=== PATIENT | female | born 1965 | race Caucasian/White ===

== ENCOUNTER 2018-02-05 05:53 | Day surgery (SDC) | payer OTHER ==
[2018-02-05] MEDS ORDERED: DIPRIVAN 200 MG/20 ML IV ONE (05:54)
[2018-02-05] MEDS ORDERED: Ketamine HCl 50 MG/ML IV ONE (05:54)
[2018-02-05] MEDS ORDERED: Lactated Ringers 1,000 ML IV SCH (06:30)
[2018-02-05 08:48] VITALS: PULSE 56
[2018-02-05 08:50] VITALS: BP 132/83; O2SAT 100
--- NOTE | 2018-02-05 12:43 | OP ---
SURGERY DATE/TIME: 02/05/2018 0725 PREOPERATIVE DIAGNOSIS: Screening exam. POSTOPERATIVE DIAGNOSIS: Sigmoid diverticulosis otherwise normal colon. PROCEDURE: Colonoscopy. SURGEON: Dr. Arevalo. ANESTHESIA: MAC. Medications given by anesthesia department. HISTORY: The patient is a 52 year-old white female presenting now for screening colonoscopy. The patient was appraised of the risks of the procedure including the risk of perforation, phlebitis, untoward reaction to medication, bleeding and missed lesions. The patient verbalized her understanding and desired to have the procedure performed. DESCRIPTION OF PROCEDURE: The patient was given the medications by the anesthesia department. She had continuous pulse oximetry, ECG monitoring, intermittent blood pressure monitoring and tidal CO2 monitoring during the examination. She was placed in the left lateral decubitus position. A digital rectal examination was performed and revealed normal anal sphincter tone and no masses. The flexible Olympus pediatric colonoscope was used to intubate the rectum. A view of the colon was developed sequentially to the cecum. Upon insertion and withdrawal, including a retroflex view in the rectum was noted a few sigmoid diverticula otherwise no mucosal lesions were encountered. The scope was removed from the patient who tolerated the procedure well and was sent back to OP recovery in good condition. The prep was noted to be good.
== END 2018-02-05 08:55 | disposition home or self-care (01) ==
LOC: SDC 05:53
PROVIDERS: ATTEND Family Medicine
DX: Z12.11 Encounter for screening for malignant neoplasm of colon (principal); K57.30 Diverticulosis of large intestine without perforation or abscess without bleeding
CPT/HCPCS: J2704

== ENCOUNTER 2018-07-15 16:43 | Inpatient (IN) | payer OTHER ==
[2018-07-15] MEDS ORDERED: TYLENOL 325 MG PO STA (17:09)
[2018-07-15] MEDS ORDERED: LEVOFLOXACIN 750MG/150ML D5W 750 MG/150 ML BAG IV STA (17:09)
[2018-07-15] MEDS ORDERED: Sodium Chloride 0.9% 1000 ML 1,000 ML ONE ×2 (17:13→18:39)
[2018-07-15] MEDS ORDERED: TYLENOL 325 MG ONE (17:13)
[2018-07-15] MEDS ORDERED: LEVOFLOXACIN 750MG/150ML D5W 750 MG/150 ML BAG IV ONE (17:13)
[2018-07-15] MEDS: Sodium Chloride 0.9% 1000 ML 1,000 ML IV SCH ×3 (17:15→21:23)
[2018-07-15] MEDS ORDERED: SUBLIMAZE 100 MCG/2 ML IV ONE (17:16)
[2018-07-15] MEDS ORDERED: Zofran 4 MG/2 ML VIAL IV ONE (17:16)
[2018-07-15 17:18] LABS: BASOPHIL % 0.2 % (0.0-0.4); Basophil (Absolute #) 0.02 (0-0.4); Eosinophil (Absolute #) 0 (0-0.5); Granulocyte Absolute (ANC) 9.09 (1.4-6.9); Granulocytes % 78.9 % (36.0-66.0); Hematocrit 44.5 % (35-47); Hemoglobin 14.5 gm/dl (12.0-16.0); Lymphocyte (Absolute #) 1.36 (1.0-4.6); Lymphocytes % 11.8 % (24.0-44.0); Mean Cell Volume 85.1 fl (78-100); Mean Corpuscular Hemoglobin 27.7 pg (26-32); Mean Corpuscular Hgb Concent. 32.6 g/dl (32-36); Mean Platelet Volume 10.8 fl (6-9.5); Monocyte (Absolute #) 1.05 (0.0-1.3); Monocytes % 9.1 % (0.0-12.0); Platelet Count 269 K/mm3 (150-450); Red Blood Count 5.23 M/mm3 (4.1-5.4); Red Cell Distribution Width 13.4 % (11.5-14.0); White Blood Count 11.5 K/mm3 (4.0-10.5)
--- NOTE | 2018-07-15 17:18 | ERPHSYRPT ---
- History of Present Illness Time Seen by Provider: 07/15/18 17:00 Historian: patient Exam Limitations: clinical condition Patient Subjective Stated Complaint: PT HERE FOR LOOSE STOOLS,FEVER, ABD PAIN SINCE MONDAY, FINISHED ANTIBOTICS MONDAY FOR C DIFF, ALSO CO NAUSEA ,STATES HAD 8 STOOLS TODAY Triage Nursing Assessment: PT ALERT, RESP EASY, SKIN W/D/P. ABD SOFT,TENDER TO TOUCH, BS HEARD Physician History: PATIENT TREATED FOR CLOSTRIDIUM DIFFICLE TREATED FOR 10 DAYS SINCE Jun FOR SYMPTOMS OF GENERALIZED ABDOMINAL PAIN AND WATERY DIARRHEA, NOW COMPLAINS OF INCREASING ABDOMINAL PAIN, LOW GRADE FEVER AND WATERY DIARRHEA, OVER THE PAST 2-3 DAYS. Timing/Duration: day(s) Activities at Onset: none Quality: sharpness, stabbing Abdominal Pain Onset Location: generalized abdomen Severity of Pain-Max: severe Severity of Pain-Current: severe Modifying Factors: Improves With: nothing Associated Symptoms: fever/chills, loss of appetite, nausea Previous symptoms: same symptoms as today Allergies/Adverse Reactions: hydromorphone [From Dilaudid] Allergy (Severe, Verified 07/15/18 16:56) Nausea and Vomiting Iodinated Contrast- Oral and IV Dye Allergy (Severe, Verified 07/15/18 16:56) Hives Home Medications: Citalopram Hydrobromide 20 mg* [ceLEXa 20 MG] 20 mg PO DAILY 02/02/18 [ History] Omeprazole Magnesium [Prilosec Otc] 20 mg PO DAILY 02/02/18 [History] L.acidoph,Paracasei, B.lactis [Probiotic] 1 ea DAILY 07/15/18 [History] Hx Tetanus, Diphtheria Vaccination/Date Given: No Hx Influenza Vaccination/Date Given: Yes Hx Pneumococcal Vaccination/Date Given: No Immunizations Up to Date: Yes - Review of Systems Constitutional: Fever, Chills Eyes: No Symptoms Ears, Nose, & Throat: No Symptoms Respiratory: No Symptoms Cardiac: No Symptoms Abdominal/Gastrointestinal: Abdominal Pain, Nausea, Diarrhea Genitourinary Symptoms: No Symptoms Skin: No Symptoms Neurological: No Symptoms Psychological: No Symptoms Endocrine: No Symptoms Immunological/Allergic: No Symptoms - Past Medical History Pertinent Past Medical History: Yes Neurological History: No Pertinent History ENT History: No Pertinent History Cardiac History: No Pertinent History Respiratory History: No Pertinent History Endocrine Medical History: No Pertinent History Musculoskeletal History: No Pertinent History GI Medical History: No Pertinent History History: No Pertinent History Psycho-Social History: Anxiety, Depression Female Reproductive Disorders: No Pertinent History Other Medical History: C DIFF 2018 - Past Surgical History Past Surgical History: Yes Neuro Surgical History: No Pertinent History Cardiac: No Pertinent History Respiratory: No Pertinent History Gastrointestinal: Cholecystectomy Genitourinary: No Pertinent History Musculoskeletal: No Pertinent History Female Surgical History: Hysterectomy - Social History Smoking Status: Never smoker Exposure to second hand smoke: No Drug Use: none Patient Lives Alone: No - Female History Hx Last Menstrual Period: POST Hx Now: No - Nursing Vital Signs Nursing Vital Signs: Initial Vital Signs Temperature 100.0 F 07/15/18 16:51 Pulse Rate 94 H 07/15/18 16:51 Respiratory Rate 16 07/15/18 16:51 Blood Pressure 151/96 07/15/18 16:51 O2 Sat by Pulse Oximetry 98 07/15/18 16:51 Pain Scale Pain Intensity 4 - Physical Exam General Appearance: no apparent distress, alert Eye Exam: PERRL/EOMI, eyes nml inspection Ears, Nose, Throat Exam: normal ENT inspection, pharynx normal, moist mucous membranes Neck Exam: normal inspection, non-tender, supple, full range of motion Respiratory Exam: normal breath sounds, lungs clear, No respiratory distress Cardiovascular Exam: regular rate/rhythm, normal heart sounds Gastrointestinal/Abdomen Exam: soft, normal bowel sounds, tenderness ( TENDERNESS BILAT LOWER QUAD WITH PERIUMBILICAL TENDERNESS), No mass Back Exam: normal inspection, normal range of motion, No CVA tenderness, No vertebral tenderness Extremity Exam: normal inspection, normal range of motion, pelvis stable Neurologic Exam: alert, oriented x 3, cooperative, normal mood/affect, nml cerebellar function, sensation nml, No motor deficits Skin Exam: normal color, warm, dry SpO2 Interpretation: normal SpO2: 98 Oxygen Delivery: Room Air - CT Exams Abdomen/Pelvis CT Interpretation: Tele-radiologist Report (MINIMAL WALL THICKENING OF THE DISTAL SIGMOID COLON AND RECTUM) Ordered Tests: Active Orders 24 hr Category Date Time Status Up With Assistance ROUTINE Activity 07/15/18 19:03 Ordered Call Admit Doctor for Orders ON ADMISSION Care 07/15/18 19:03 Ordered Code Status Order ROUTINE Care 07/15/18 19:03 Ordered IV Care Q6H Care 07/15/18 19:03 Ordered IV Insertion STAT Care 07/15/18 17:[address] in Observation ROUTINE Care 07/15/18 19:03 Ordered Vital Signs Q4H Care 07/15/18 19:03 Ordered NPO except Meds Diet 07/15/18 19:04 Ordered ABDOMEN AND PELVIS W/0 CONTRAS [CT] Stat Exams 07/15/18 17:49 Taken BLOOD CULTURE Stat Lab 07/15/18 17:00 Ordered CBC W DIFF Stat Lab 07/15/18 17:00 Completed CMP Stat Lab 07/15/18 17:00 Completed Lactic Acid Stat Lab 07/15/18 17:09 Completed Occult Blood,Stool Other Stat Lab 07/15/18 18:58 Ordered PROTIME WITH INR Stat Lab 07/15/18 17:00 Completed VENOUS BLOOD GAS Stat Lab 07/15/18 17:09 Completed Transfer Order Routine Transfer 07/15/18 Ordered Medication Summary Generic Name Dose Route Start Last Admin Trade Name Freq PRN Reason Stop Dose Admin Sodium Chloride 1,000 mls @ 999 mls/hr 07/15/18 17:15 07/15/18 18:42 Sodium Chloride 0.9% 1000 Ml IV 07/15/18 20:15 999 mls/hr .Q1H1M IMAN Administration Discontinued Medications Generic Name Dose Route Start Last Admin Trade Name Freq PRN Reason Stop Dose Admin Acetaminophen 650 mg 07/15/18 17:09 07/15/18 17:15 Tylenol 325 Mg PO 07/15/18 17:10 650 mg STAT STA Administration Acetaminophen Confirm 07/15/18 17:13 Tylenol 325 Mg Administered 07/15/18 17:14 Dose 650 mg .ROUTE .STK-MED ONE Fentanyl Citrate 100 mcg 07/15/18 17:16 07/15/18 17:25 Sublimaze 100 Mcg/2 Ml IV 07/15/18 17:17 100 mcg STAT ONE Administration Fentanyl Citrate Confirm 07/15/18 17:23 Sublimaze 100 Mcg/2 Ml Administered 07/15/18 17:24 Dose 100 mcg .ROUTE .STK-MED ONE Levofloxacin/Dextrose 750 mg in 150 mls @ 100 mls/hr 07/15/18 17:09 07/15/18 17:15 Levofloxacin 750mg/150ml D5w IV 11/18/18 18:38 125 ml/hr STAT STA 125 mls/hr Administration Levofloxacin/Dextrose Confirm 07/15/18 17:13 Levofloxacin 750mg/150ml D5w Administered 07/15/18 17:14 Dose 750 mg in 150 mls @ ud IV .STK-MED ONE Metronidazole 500 mg in 100 mls @ 200 mls/hr 07/15/18 18:33 Flagyl 500 Mg Ivpb IV 07/15/18 19:02 STAT STA Ondansetron HCl 4 mg 07/15/18 17:16 07/15/18 17:26 Zofran 4 Mg/2 Ml Vial IV 07/15/18 17:17 4 mg STAT ONE Administration Ondansetron HCl Confirm 07/15/18 17:23 Zofran 4 Mg/2 Ml Vial Administered 07/15/18 17:24 Dose 4 mg .ROUTE .STK-MED ONE Vancomycin HCl 250 mg 07/15/18 18:51 Vancomycin Hcl Capsule PO 07/15/18 18:52 STAT ONE Lab/Rad Data: Laboratory Result Diagrams 07/15/18 17:00 07/15/18 17:00 Laboratory Results 07/15/18 07/15/18 07/15/18 Range/Units 17:09 17:09 17:00 WBC (4.0-10.5) K/mm3 RBC (4.1-5.4) M/mm3 Hgb (12.0-16.0) gm/dl Hct (35-47) % MCV (78-100) fl MCH (26-32) pg MCHC (32-36) g/dl RDW (11.5-14.0) % Plt Count (150-450) K/mm3 MPV (6-9.5) fl Gran % (36.0-66.0) % Eos # (Auto) (0-0.5) Absolute Lymphs (auto) (1.0-4.6) Absolute Monos (auto) (0.0-1.3) Lymphocytes % (24.0-44.0) % Monocytes % (0.0-12.0) % Eosinophils % (0.00-5.0) % Basophils % (0.0-0.4) % Absolute Granulocytes (1.4-6.9) Basophils # (0-0.4) PT 12.8 H (9.95-12.35) SECONDS INR 1.10 (0.8-3.0) pO2/FiO2 Ratio 21.0 % VBG pH 7.49 H (7.32-7.42) VBG pCO2 at Pat Temp 36 L (42-55) mm/Hg VBG pO2 at Pat Temp 33 (25-40) mm/Hg VBG HCO3 27.4 (22-28) meq/L VBG O2 Sat (Ellie) 70.8 L (95-100) VBG Base Excess 4.1 H (-2.0-2.0) VBG Hemoglobin 15.0 VBG Carboxyhemoglobin 2.9 (0.0-6.9) % T HGB POC Potassium 3.6 (3.5-5.1) Sodium (137-145) mmol/L Potassium (3.5-5.1) mmol/L Chloride (98-107) mmol/L Carbon Dioxide (22-30) mmol/L Anion Gap (5-15) MEQ/L BUN (7-17) mg/dL Creatinine (0.52-1.04) mg/dL Estimated GFR ML/MIN Glucose (74-106) mg/dL Lactic Acid 1.5 (0.4-2.0) Calcium (8.4-10.2) mg/dL Total Bilirubin (0.2-1.3) mg/dL AST (14-36) U/L ALT (0-35) U/L Alkaline Phosphatase (38-126) U/L Serum Total Protein (6.3-8.2) g/dL Albumin (3.5-5.0) g/dL 07/15/18 07/15/18 Range/Units 17:00 17:00 WBC 11.5 H (4.0-10.5) K/mm3 RBC 5.23 (4.1-5.4) M/mm3 Hgb 14.5 (12.0-16.0) gm/dl Hct 44.5 (35-47) % MCV 85.1 (78-100) fl MCH 27.7 (26-32) pg MCHC 32.6 (32-36) g/dl RDW 13.4 (11.5-14.0) % Plt Count 269 (150-450) K/mm3 MPV 10.8 H (6-9.5) fl Gran % 78.9 H (36.0-66.0) % Eos # (Auto) 0 (0-0.5) Absolute Lymphs (auto) 1.36 (1.0-4.6) Absolute Monos (auto) 1.05 (0.0-1.3) Lymphocytes % 11.8 L (24.0-44.0) % Monocytes % 9.1 (0.0-12.0) % Eosinophils % 0.0 (0.00-5.0) % Basophils % 0.2 (0.0-0.4) % Absolute Granulocytes 9.09 H (1.4-6.9) Basophils # 0.02 (0-0.4) PT (9.95-12.35) SECONDS INR (0.8-3.0) pO2/FiO2 Ratio % VBG pH (7.32-7.42) VBG pCO2 at Pat Temp (42-55) mm/Hg VBG pO2 at Pat Temp (25-40) mm/Hg VBG HCO3 (22-28) meq/L VBG O2 Sat (Ellie) (95-100) VBG Base Excess (-2.0-2.0) VBG Hemoglobin VBG Carboxyhemoglobin (0.0-6.9) % T HGB POC Potassium (3.5-5.1) Sodium 141 (137-145) mmol/L Potassium 3.7 (3.5-5.1) mmol/L Chloride 103 (98-107) mmol/L Carbon Dioxide 26 (22-30) mmol/L Anion Gap 16.4 H (5-15) MEQ/L BUN 10 (7-17) mg/dL Creatinine 0.63 (0.52-1.04) mg/dL Estimated GFR > 60.0 ML/MIN Glucose 108 H (74-106) mg/dL Lactic Acid (0.4-2.0) Calcium 9.5 (8.4-10.2) mg/dL Total Bilirubin 0.50 (0.2-1.3) mg/dL AST 28 (14-36) U/L ALT 34 (0-35) U/L Alkaline Phosphatase 70 (38-126) U/L Serum Total Protein 7.8 (6.3-8.2) g/dL Albumin 4.6 (3.5-5.0) g/dL - Progress Progress Note: 07/15/18 17:49 PLACED ONTO SEPSIS PROTOCOL UPON ADMISSION 100KG X 30ML BUT REMOVED AFTER LACTIC ACID-1.6 07/15/18 17:51, NORMAL SALINE LITER BOLUS OVER 1 HOUR, ZOFRAN 4MG, FENTANYL 0.1MG IV, GIVEN VANCOMYCIN 250MG ORALLY 07/15/18 18:48 Discussed with DrTaqueria: Other (DISCUSSED WITH DR CURTIS AT 1845 FOR OBSERVATION) - Departure Time of Disposition: 18:55 Departure Disposition: Observation Clinical Impression: ACUTE SIGMOID PROTOCOLITIS Condition: Stable Critical Care Time: No Referrals: BAIRON ROMO [Primary Care Provider] -
[2018-07-15] MEDS ORDERED: Zofran 4 MG/2 ML VIAL ONE (17:23)
[2018-07-15] MEDS ORDERED: SUBLIMAZE 100 MCG/2 ML ONE (17:23)
[2018-07-15 17:25] LABS: VBG BASE EXCESS 4.1 (-2.0-2.0); VBG CARBOXYHEMOGLOBIN 2.9 % T HGB (0.0-6.9); VBG HCO3- 27.4 meq/L (22-28); VBG O2 SATURATION 70.8 (95-100); VBG POTASSIUM 3.6 (3.5-5.1); VBG pH 7.49 (7.32-7.42)
[2018-07-15 17:38] LABS: INR 1.1 (0.8-3.0)
[2018-07-15 17:42] LABS: ALBUMIN 4.6 g/dL (3.5-5.0); ALKALINE PHOSPHATASE 70 U/L (38-126); ANION GAP 16.4 MEQ/L (5-15); BLOOD UREA NITROGEN 10 mg/dL (7-17); CHLORIDE 103 mmol/L (98-107); Calcium 9.5 mg/dL (8.4-10.2); Carbon Dioxide 26 mmol/L (22-30); Creatinine 1 0.63 mg/dL (0.52-1.04); Glucose 108 mg/dL (74-106); Potassium 3.7 mmol/L (3.5-5.1); SGOT/AST 28 U/L (14-36); SGPT/ALT 34 U/L (0-35); SODIUM 141 mmol/L (137-145); Total Protein 7.8 g/dL (6.3-8.2)
[2018-07-15] MEDS ORDERED: FLAGYL 500 MG IVPB 500 MG/100 ML BAG IV STA (18:33)
[2018-07-15] MEDS ORDERED: VANCOMYCIN HCL CAPSULE PO ONE (18:51)
[2018-07-15 19:59] LABS: 027 TOX PROD PRESUMPTIVE NEGATIVE (NEGATIVE); TOXIGENIC C. DIFF ORG POSITIVE (NEGATIVE)
--- NOTE | 2018-07-15 21:12 | XRAY ---
Indication: Pelvic pain and diarrhea. Multiple contiguous axial images obtained through the abdomen and pelvis without contrast as ordered. Comparison: None. Lung bases are clear. Heart is not enlarged. Small hiatal hernia. Noncontrasted stomach and bowel loops appear nonobstructed. Normal appendix. No free fluid/air. Scattered hepatic/splenic calcified granulomas. Previous cholecystectomy and hysterectomy. Remaining liver, pancreas, spleen, adrenal glands, kidneys, ureters, bladder, uterus, and aorta appear unremarkable for noncontrast exam. Osseous structures intact. No ventral or inguinal hernias. Impression: 1. Small hiatal hernia and evidence for old granulomatous disease. 2. Remaining CT abdomen/pelvis without contrast exam is negative. Comment: Preliminary interpretation was made by [facility]. No critical discrepancy. CTDI 21.88
[2018-07-15] MEDS: TYLENOL 325 MG PO PRN (21:21)
[2018-07-15] MEDS: VANCOMYCIN HCL CAPSULE PO SCH (22:10)
[2018-07-15] MEDS: Pepcid 20 MG VIAL IV SCH (23:10)
[2018-07-16] MEDS: FLAGYL 500 MG IVPB 500 MG/100 ML BAG IV SCH ×4 (01:23→17:03)
[2018-07-16] MEDS: MORPHINE SULFATE 4 MG INJ IV PRN ×2 (01:24→09:05)
[2018-07-16] MEDS: Sodium Chloride 0.9% 1000 ML 1,000 ML IV SCH ×2 (07:37→19:55)
[2018-07-16] MEDS: ceLEXa 20 MG PO SCH (10:51)
[2018-07-16] MEDS: VANCOMYCIN HCL CAPSULE PO SCH ×4 (10:51→21:53)
[2018-07-16] MEDS: Pepcid 20 MG VIAL IV SCH ×2 (10:51→21:53)
[2018-07-16] MEDS: Zofran 4 MG/2 ML VIAL IV PRN (12:46)
[2018-07-16] MEDS ORDERED: MORPHINE SULFATE 2 MG INJ IV PRN (15:44)
--- NOTE | 2018-07-16 15:50 | HP ---
HISTORY OF PRESENT ILLNESS: Rachelle Lowry is a 53 year old woman with past medical history of anxiety, depression and gastroesophageal reflux disease. She was recently treated for Clostridium difficile colitis for ten days starting 06/30/2018 for symptoms of abdominal pain and watery diarrhea. She presented to the emergency room yesterday evening. As per patient she completed her treatment as directed. She presented to the emergency room yesterday with symptoms of generalized abdominal pain, low grade fever, watery diarrhea for two to three days. Also, she had reported nausea and bright red blood in stools. Upon initial evaluation in the emergency room she had low grade fever. Upon initial evaluation in the emergency room she was noted to have blood pressure 151/96, heart rate 94, respiratory rate 16 and temperature 100F. Oxygen saturation 98%. CT scan done in the emergency room showed minimal wall thickening of the sigmoid colon and rectum. She was treated with Tylenol 650 mg p.o. x1, Levaquin 750 mg IV x1, Flagyl 500 mg IV x1, Zofran 4 mg IV x1, Vancomycin 250 mg p.o. x1. Subsequently she was admitted to medical floor for monitoring and management. Since admission she was continued on antibiotics, IV fluids and analgesics. At the time of this evaluation she was alert, awake, comfortable. States that abdominal pain has improved some. Complains of occasional nausea. States diarrhea has improved. PAST MEDICAL HISTORY: As noted above. PAST SURGICAL HISTORY: Cholecystectomy. Hysterectomy. The patient's last colonoscopy was on 02/14/2018. ALLERGIES: HYDROMORPHONE, IODINATED CONTRAST. MEDICATIONS: Current medications were reviewed. SOCIAL HISTORY: The patient lives at home where she is a smoker. CRUSHER FEEDER HISTORY: The patient is post-menopausal. FAMILY HISTORY: Noncontributory. REVIEW OF SYSTEMS: Denies headache or dizziness. History of low grade fever. Denies chest pain, shortness of breath or cough. General abdominal pain, nausea. No vomiting. History of low grade fever. Complains of diarrhea, blood in stool. Complains of crampy abdominal pain. Complains of nausea. No vomiting. Denies urinary complaints. PHYSICAL EXAMINATION: A middle aged obese woman lying comfortably in bed, not in acute distress. VITAL SIGNS: Blood pressure 131/70, heart rate 81, respiratory rate 18, temperature 98.8F. Oxygen saturation 95% on room air. HEENT: No pallor or icterus is noted. NECK: No JVD is present. CVS: S1, S2 present. RESPIRATORY: Breath sounds are bilaterally and clear to auscultation. ABDOMEN: Obese, soft, mild generalized tenderness. No guarding present. Bowel sounds present. NEURO: She is alert, oriented x3. EXTREMITIES: No edema on bilateral lower extremities. LABORATORY DATA AND TESTS: Labs from 07/15/2018 showed CBC with white blood cell count 11.5, hemoglobin 14.5, hematocrit 44.5 otherwise unremarkable. International normalized ratio was 1.10. Venous blood gas showed pH of 7.49. CMP essentially unremarkable. Stool Clostridium difficile toxin was positive. Stool occult blood was positive. Lactic acid 1.5. Clostridium difficile 027, NAP1-B1 presumptive negative. Blood cultures are pending. CT scan of abdomen and pelvis showed small hiatal hernia, evidence of old granulomatous disease otherwise negative. ASSESSMENT: A 53 year old woman with impression: 1) Clostridium difficile colitis. 2) Dehydration. 3) Blood in stool. 4) Gastroesophageal reflux disease. 5) Anxiety/Depression. PLAN: The patient is admitted for further monitoring and management. Continue IV fluids, analgesics, continue broad spectrum IV antibiotics (Flagyl and Levaquin). Addition of proton pump inhibitors. Continue to follow CBC and electrolytes. Surgery consultation. Continue to follow hemodynamic status. The plan was discussed with the patient. She seems to be in understanding and agreement.
[2018-07-16] MEDS: PROTONIX 40 MG IV IV SCH (16:23)
[2018-07-16] MEDS: TYLENOL 325 MG PO PRN (17:01)
[2018-07-17] MEDS: Zofran 4 MG/2 ML VIAL IV PRN ×2 (00:37→08:26)
[2018-07-17] MEDS: FLAGYL 500 MG IVPB 500 MG/100 ML BAG IV SCH ×5 (00:37→23:12)
[2018-07-17 06:04] LABS: BASOPHIL % 0.2 % (0.0-0.4); Basophil (Absolute #) 0.01 (0-0.4); Eosinophil (Absolute #) 0 (0-0.5); Granulocyte Absolute (ANC) 3.68 (1.4-6.9); Granulocytes % 65.7 % (36.0-66.0); Hemoglobin 12.1 gm/dl (12.0-16.0); Lymphocyte (Absolute #) 1.22 (1.0-4.6); Lymphocytes % 21.8 % (24.0-44.0); Mean Cell Volume 85.8 fl (78-100); Mean Corpuscular Hemoglobin 28.1 pg (26-32); Mean Corpuscular Hgb Concent. 32.7 g/dl (32-36); Mean Platelet Volume 10.4 fl (6-9.5); Monocyte (Absolute #) 0.69 (0.0-1.3); Monocytes % 12.3 % (0.0-12.0); Platelet Count 199 K/mm3 (150-450); Red Blood Count 4.31 M/mm3 (4.1-5.4); White Blood Count 5.6 K/mm3 (4.0-10.5)
[2018-07-17 06:45] LABS: ALBUMIN 3.7 g/dL (3.5-5.0); ALKALINE PHOSPHATASE 56 U/L (38-126); BLOOD UREA NITROGEN 6 mg/dL (7-17); CHLORIDE 105 mmol/L (98-107); Calcium 8.4 mg/dL (8.4-10.2); Carbon Dioxide 22 mmol/L (22-30); Creatinine 1 0.55 mg/dL (0.52-1.04); Glucose 71 mg/dL (74-106); Potassium 3.5 mmol/L (3.5-5.1); SGOT/AST 23 U/L (14-36); SGPT/ALT 25 U/L (0-35); SODIUM 138 mmol/L (137-145); Total Protein 6.5 g/dL (6.3-8.2)
[2018-07-17] MEDS: Sodium Chloride 0.9% 1000 ML 1,000 ML IV SCH ×2 (08:14→22:56)
[2018-07-17] MEDS: TYLENOL 325 MG PO PRN (08:25)
--- NOTE | 2018-07-17 09:04 | CONS ---
CONSULT DATE: 07/16/2018 REASON FOR CONSULT: Diarrhea. HISTORY: This patient presents with recurrent Clostridium difficile infections. She was initially diagnosed with Clostridium difficile on 06/30/2018. She underwent three different antibiotic treatments for both tooth abscess and root canal and urinary tract infection. She had noticed severe diarrhea with some blood in her stool. She was placed on Flagyl and this cleared up. After she completed Flagyl she had return of her symptoms on Monday. Yesterday she had a fever of 101F, severe abdominal pain, multiple diarrheal with blood in it and returned to the hospital. She was placed on p.o. Vancomycin and IV Flagyl and today her symptoms are much better. She is not having as much pain. She is not having any fevers in the hospital just low grade. She had four bowel movements today but they were just a small amount of mucous and were not very significant with just a small amount of blood in them. Overall she feels much better today. She denies any chest pain, shortness of breath, dysuria. REVIEW OF SYSTEMS: Twelve systems reviewed and negative except for in the history of present illness. PAST MEDICAL HISTORY: Anxiety, depression, gastroesophageal reflux disease, Clostridium difficile colitis. PAST SURGICAL HISTORY: Cholecystectomy. Hysterectomy. Colonoscopy last performed December [address] Daron Arevalo. MEDICATIONS: Medications reviewed, see MAR. ALLERGIES: DILAUDID, IODINATED CONTRAST. SOCIAL HISTORY: Positive for tobacco. FAMILY HISTORY: Noncontributory. PHYSICAL EXAMINATION: GENERAL: No acute distress. HEENT: Sclera nonicteric. Extraocular movements intact. NECK: Supple. No JVD. CHEST: Nonlabored breathing. ABDOMEN: Soft, nondistended, mildly tender in the left lower quadrant. NEURO: Awake, alert and oriented. PSYCH: Appropriate mood and affect. LAB DATA AND TESTS: CT scan showed very mild sigmoid and rectal thickening consistent with proctosigmoiditis. Clostridium difficile polymerase chain reaction (PCR) is positive. White blood cell 11.5, hemoglobin 14.5, PLT 269,000. Creatinine 0.68, glucose 108. CT scan also showed small hiatal hernia. ASSESSMENT: Clostridium difficile colitis. PLAN: I would not recommend colonoscopy during active Clostridium difficile colitis. The patient is currently quite comfortable with not that much abdominal pain and a mildly elevated white blood cell count. She definitely appears nontoxic and there is no need for surgery for her Clostridium difficile colitis. I would recommend continued treatment with p.o. Vancomycin as she has failed Flagyl previously. If the patient's Clostridium difficile colitis does not resolve after this second course of antibiotic therapy would recommend evaluation for fecal transplant or continued antibiotic therapy with Pepcid. We do not do fecal transplants at this institution so she would need to be evaluated at another facility for this option. Please call if needed.
[2018-07-17] MEDS: VANCOMYCIN HCL CAPSULE PO SCH ×4 (10:22→21:25)
[2018-07-17] MEDS: ceLEXa 20 MG PO SCH (10:22)
[2018-07-17] MEDS: LEVOFLOXACIN 750MG/150ML D5W 750 MG/150 ML BAG IV SCH (10:22)
[2018-07-17] MEDS: Pepcid 20 MG VIAL IV SCH ×2 (10:23→21:25)
[2018-07-17] MEDS: PROTONIX 40 MG IV IV SCH (14:33)
[2018-07-18] MEDS: FLAGYL 500 MG IVPB 500 MG/100 ML BAG IV SCH ×2 (06:25→11:49)
[2018-07-18 08:48] LABS: BASOPHIL % 0.5 % (0.0-0.4); Basophil (Absolute #) 0.02 (0-0.4); Eosinophil (Absolute #) 0 (0-0.5); Granulocyte Absolute (ANC) 2.41 (1.4-6.9); Granulocytes % 61.2 % (36.0-66.0); Hematocrit 39.1 % (35-47); Hemoglobin 12.9 gm/dl (12.0-16.0); Lymphocyte (Absolute #) 1.02 (1.0-4.6); Lymphocytes % 25.9 % (24.0-44.0); Mean Cell Volume 84.8 fl (78-100); Mean Platelet Volume 10.2 fl (6-9.5); Monocyte (Absolute #) 0.49 (0.0-1.3); Monocytes % 12.4 % (0.0-12.0); Platelet Count 225 K/mm3 (150-450); Red Blood Count 4.61 M/mm3 (4.1-5.4); Red Cell Distribution Width 13.1 % (11.5-14.0); White Blood Count 3.9 K/mm3 (4.0-10.5)
[2018-07-18 09:00] LABS: ALBUMIN 4.1 g/dL (3.5-5.0); ALKALINE PHOSPHATASE 58 U/L (38-126); ANION GAP 12.9 MEQ/L (5-15); BLOOD UREA NITROGEN 5 mg/dL (7-17); CHLORIDE 107 mmol/L (98-107); Calcium 8.7 mg/dL (8.4-10.2); Carbon Dioxide 24 mmol/L (22-30); Creatinine 1 0.59 mg/dL (0.52-1.04); Glucose 138 mg/dL (74-106); Potassium 3.7 mmol/L (3.5-5.1); SGOT/AST 29 U/L (14-36); SGPT/ALT 26 U/L (0-35); SODIUM 140 mmol/L (137-145)
--- NOTE | 2018-07-18 09:31 | PROG NOTE ---
DATE: 07/17/2018 Chart reviewed and event noted. HISTORY: The patient is alert, awake and comfortable. States she had six to seven loose bowel movements however did not see any blood in stools. She states abdominal cramping has improved much better, has nearly resolved. Overall feels better. Denies any other new complaints. Appears comfortable. PHYSICAL EXAMINATION: VITAL SIGNS: Blood pressure 126/79, heart rate 66, respiratory rate 18, temperature 98.2F. Oxygen saturation 95%. HEENT: No pallor or icterus is noted. NECK: No JVD is present. CVS: S1, S2 present. RESPIRATORY: Breath sounds are bilaterally diminished and clear to auscultation. ABDOMEN: Soft, nontender. NEURO: She is alert, oriented x3. EXTREMITIES: No edema on bilateral lower extremities. LABORATORY DATA AND TESTS: Labs from today show unremarkable CBC, unremarkable CMP. Blood cultures have shown no growth. Medications were reviewed. ASSESSMENT: A 53 year-old with impression: 1) Clostridium difficile colitis. 2) Dehydration, clinically improved. 3) History of blood in stools (stable hemoglobin/hematocrit). 4) Gastroesophageal reflux disease. 5) Anxiety/depression. PLAN: Continue current management. Start diet advance as tolerated. Continue p.o. Vancomycin. Surgical consult noted. Will discontinue Flagyl at this time. Likely discharge tomorrow. The plan was discussed with the patient. She seems to be in understanding and agreement. The patient's nurse was not available at the time of evaluation.
[2018-07-18] MEDS: LEVOFLOXACIN 750MG/150ML D5W 750 MG/150 ML BAG IV SCH ×2 (09:46→09:52)
[2018-07-18] MEDS: Pepcid 20 MG VIAL IV SCH (09:46)
[2018-07-18] MEDS: ceLEXa 20 MG PO SCH (09:46)
[2018-07-18] MEDS: MARY'S MOUTHWASH PO SCH ×2 (09:46→14:20)
[2018-07-18] MEDS: VANCOMYCIN HCL CAPSULE PO SCH ×2 (09:46→14:19)
[2018-07-18 14:21] VITALS: BP 123/73; PULSE 79; O2SAT 94
--- NOTE | 2018-07-18 16:34 | DS ---
DISCHARGE DIAGNOSIS: 1. CLOSTRIDIUM DIFFICILE COLITIS. 2. DEHYDRATION - CLINICALLY RESOLVED. 3. BLOOD IN STOOL (STABLE HGB/HCT). 4. GERD. 5. ANXIETY/DEPRESSION. 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 Duane Luevano. HOSPITAL COURSE: is a 53 y/o woman with past medical history of anxiety, depression, and GERD. She was recently treated for C. Diff colitis for 10 days started 06/30/18 and had completed treatment with Flagyl. Subsequently, she presented to ER on 07/15/18 with symptoms of abdominal pain, low grade fever, and watery diarrhea with blood in stools. Work-up done in ER showed CBC with WBC of 11.5. CMP was unremarkable. C. Diff toxin was positive. Stool occult blood was positive (She had also reported some blood in stools upon presentation). Lactic acid on presentation was 1.5. Preliminary results of CT scan of abdomen and pelvis had shown minimal wall thickening of sigmoid colon and rectum. Eventually, CT was read as small hiatal hernia, evidence of old granulomatous disease, otherwise negative. C. Diff 027 NAP1-B1 presumptive negative. She was placed on treatment with IV fluids, antiemetics, and analgesics. Also, she was started on broad spectrum IV antibiotics including IV Levaquin. She was placed on PO Vancomycin. Surgical consultation as obtained. Blood cultures during her stay had remained negative. Follow-up labs during her stay showed normal WBC, minimal drop but eventually stable Hgb/Hct. During her further course, her blood in stool had clinically resolved. Also, PPI were added to her treatment with significant improvement in her symptoms of nausea/abdominal cramps. Eventually, the symptoms of abdominal cramps had resolved. She was placed on clear liquid diet that she tolerated well and her diet was advanced as tolerated. During her further course, she did have some diarrhea, but she otherwise remained hemodynamically stable. She was evaluated by surgical orderly on case and was advised to continue antibiotics. There was felt to be no need for any additional surgical intervention at this time. The rest of her course was essentially, more or less, unremarkable. She improved clinically, remained hemodynamically stable. At the time of this evaluation, she is alert, awake, and comfortable. States her abdominal pain/cramps and nausea had resolved. Earlier today she was placed on regular diet that she tolerated well. She still has occasional diarrhea. However, overall, feels much better. She has ambulated with comfort. She is feeling well and is requesting to be discharged home today. Appears comfortable. Denies any other complaints. VITALS: BP 123/73, heart rate 79, respiratory rate 18, temperature 98.2, O2 saturation 95% on room air. HEENT: No pallor or icterus noted. NECK: No JVD present. CVS: S1 and S2 present. RESPIRATORY: Breath sounds bilaterally diminished and clear to auscultation. ABDOMEN: Soft, nontender. NEURO: She was alert and oriented X 3. EXTREMITIES: No edema on bilateral lower extremities. LABORATORY DATA: Labs from today show CBC with WBC of 3.9, Hgb 12.9, Hct 39, platelets 225. Today's CMP is unremarkable except glucose 138. Medications were reviewed. Assessment as outlined in Discharge Diagnosis. PLAN: 53 y/o woman with history of GERD, anxiety, depression, and recent treatment for C. Diff colitis was admitted with symptoms of abdominal cramps, diarrhea, and fever and was diagnosed to have recurrence of C. Diff. She underwent work-up and treatment as noted. She has improved clinically. Remains hemodynamically stable. She is able to tolerate diet. She was treated conservatively per surgery recommendations. She is otherwise feeling well and is wishing to go home. She is being discharged after discussion with surgical orderly on case. She is being discharged home in stable condition. Please refer to discharge medication list from 07/18/18 for details of medications on discharge. The patient was advised to start her discharge medications as directed. She was advised to continue her antibiotics for an additional 6 days. Also, patient requested prescription for PPI as that had helped her abdominal symptoms well. She was given prescription for that. She was advised to drink ample PO fluids. She was advised to obtain CMP/CBC in 1 week and follow-up with family care physician of her choice in 1 week. Compliance with diet, medications, follow-up appoints was stressed. She was also advised to follow-up with surgical orderly in the next couple of weeks. She was advised to return to the Emergency Room [facility] if any new signs and symptoms or reappearance of previous signs and symptoms are noted. Patient's clinical condition, work-up results, and plan of management including plan after discharged were discussed with her. She seems to be in understanding and agreement. Please refer to patient's chart, diagnostic work-up, and notes for details. Plan was discussed with egg caser. ADDENDUM (07/19/2018): After I had left from patient's room, I was informed by the patient's nurse that the patient had reportedly developed some itching and redness to Levaquin when she was receiving that earlier yesterday morning. I went back to the patient's room and asked the patient about the same. The patient stated she had minimal redness at the site where she had received Levaquin. However those symptoms have resolved after a while. Upon examination the patient had minimal erythema at the site and as per patient that was resolving as well. Given questionable allergy to Levaquin the patient's Levaquin prescription was cancelled. The patient's pharmacy was notified of the same by patient's nurse to cancel Levaquin prescription. Upon discharge the patient was given a prescription for Keflex 500 mg in addition to her Vancomycin. The patient was advised to start Keflex in addition to p.o. Vancomycin as directed. The patient was advised to continue to monitor additional signs, symptoms of allergy including but not limited to rash, shortness of breath, and return to our emergency room immediately when they are to appear. The plan was discussed with the patient who seemed to be in understanding and agreement. Discussed with patient's nurse, Neha.
[2018-07-20 17:06] LABS: Source: Feces
== END 2018-07-18 16:50 | disposition home or self-care (01) | DRG 372 ==
LOC: ED 16:43 → MED SURG 19:28 → OBSVTOIN 19:28
PROVIDERS: ADMIT Internal Medicine; ATTEND General Practice
DX: A04.72 Enterocolitis due to Clostridium difficile, not specified as recurrent (principal); K92.1 Melena; E86.0 Dehydration; K21.9 Gastro-esophageal reflux disease without esophagitis; F41.9 Anxiety disorder, unspecified; F32.9 Major depressive disorder, single episode, unspecified; Z79.899 Other long term (current) drug therapy; Z72.0 Tobacco use
CPT/HCPCS: 36000; 36415; 74176; 80053; 82272; 82805; 83605; 85025; 85610; 87040; 87177; 87209; 87493; 96360; 96365; 96374; 96375; 99285; J1956; J2270; J2405; J3010; A9270-GY

== ENCOUNTER 2020-07-03 12:36 | Emergency (ER) | payer OTHER ==
[2020-07-03] MEDS ORDERED: TORAdol 30 mg Injection IV ONE (13:09)
[2020-07-03] MEDS ORDERED: Sodium Chloride 0.9% 1000 ML 1,000 ML IV STA (13:19)
[2020-07-03] MEDS ORDERED: TORAdol 30 mg Injection ONE (13:20)
[2020-07-03] MEDS ORDERED: Sodium Chloride 0.9% 1000 ML 1,000 ML ONE (13:20)
[2020-07-03 13:26] LABS: Appearance CLEAR (CLEAR); Bilirubin NEGATIVE (NEGATIVE); Blood NEGATIVE Ery/ul (0-5); Glucose NEGATIVE (NEGATIVE); Ketones NEGATIVE (NEGATIVE); Leukocyte Esterase NEGATIVE (NEGATIVE); Mucus SLIGHT /HPF (NEGATIVE); Nitrite NEGATIVE (NEGATIVE); Protein,Urine Dip NEGATIVE (Negative); Specific Gravity 1.002 (1.005-1.025); Urobilinogen NEGATIVE mg/dL (0-1)
[2020-07-03 13:29] LABS: Bacteria NONE SEEN /HPF (NEGATIVE); RBC NONE SEEN /HPF (0-2)
--- NOTE | 2020-07-03 13:53 | ERPHSYRPT ---
- History of Present Illness Historian: patient Exam Limitations: no limitations Patient Subjective Stated Complaint: abd pain/flank pain Triage Nursing Assessment: pt to ED c/o R side abd pain and flank apin x 3 days. states pain has been radiating down for few days. rates 10/10 pain. no issues with urination, resports some diarrhea yesterday but is having solid stools today. c/o N and has put self on clear liquid diet for nausea. has been tolerating fluids at home. denies COVID exposure. Physician History: 55 yo wf w R flank pain radiating to RUQ/RLQ x 3days. Pt rates pain 9/10 and had similar pain in 2018. Nothing makes the pain better or worse. She has had N wo V/fever/dysuria/hematuria/chest pain/dyspnea. Pt had diarrhea which resolved yesterday. Timing/Duration: other (3 days) Quality: stabbing Abdominal Pain Onset Location: RUQ, RLQ, flank Pain Radiation: RUQ, RLQ Severity of Pain-Max: severe Modifying Factors: Improves With: nothing Associated Symptoms: back, nausea, vomiting, No chest pain, No diaphoresis, No diarrhea, No fever/chills, No fatigue, No headache, No heartburn, No loss of appetite, No neck pain, No rash, No shortness of breath, No syncope, No testicular pain, No weakness Previous symptoms: other (Similar pain 2 yrs ago) Allergies/Adverse Reactions: hydromorphone [From Dilaudid] Allergy (Severe, Verified 07/03/20 13:04) Nausea and Vomiting Iodinated Contrast Media Allergy (Severe, Verified 07/03/20 13:04) Hives levofloxacin [From Levaquin] Allergy (Mild, Verified 07/03/20 13:32) Rash Home Medications: 5Hydroxytryptophan(Oxitriptan) [5-Htp] 200 mg PO DAILY 07/03/20 [History] Melatonin 10 mg PO DAILY 07/03/20 [History] Hx Tetanus, Diphtheria Vaccination/Date Given: No Hx Influenza Vaccination/Date Given: Yes Hx Pneumococcal Vaccination/Date Given: No Travel Risk - International Travel Have you traveled outside of the country in past 3 weeks: No - Coronavirus Screening Are you exhibiting any of the following symptoms?: Yes Symptoms: Vomiting/Diarrhea Close contact with a COVID-19 positive Pt in past 14-21 Days: No - Review of Systems Constitutional: No Symptoms Eyes: No Symptoms Ears, Nose, & Throat: No Symptoms Respiratory: No Symptoms Cardiac: No Symptoms Abdominal/Gastrointestinal: No Symptoms, Nausea, Vomiting Genitourinary Symptoms: No Symptoms, Flank Pain Musculoskeletal: No Symptoms Skin: No Symptoms Neurological: No Symptoms Psychological: No Symptoms Endocrine: No Symptoms Hematologic/Lymphatic: No Symptoms Immunological/Allergic: No Symptoms - Past Medical History Pertinent Past Medical History: Yes Neurological History: No Pertinent History ENT History: No Pertinent History Cardiac History: No Pertinent History Respiratory History: No Pertinent History Endocrine Medical History: No Pertinent History Musculoskeletal History: No Pertinent History GI Medical History: No Pertinent History History: No Pertinent History Psycho-Social History: Anxiety, Depression Female Reproductive Disorders: No Pertinent History Other Medical History: UTI May 2018, passed kidney stone May 2018,. C DIFF 2018 (FMT in 2018) - Past Surgical History Past Surgical History: Yes Neuro Surgical History: No Pertinent History Cardiac: No Pertinent History Respiratory: No Pertinent History Gastrointestinal: Cholecystectomy Genitourinary: No Pertinent History Musculoskeletal: No Pertinent History Female Surgical History: Hysterectomy - Social History Smoking Status: Never smoker Exposure to second hand smoke: No Drug Use: none Patient Lives Alone: No - Female History Hx Now: No (hysterectomy) - Nursing Vital Signs Nursing Vital Signs: Initial Vital Signs Temperature 98.5 F 07/03/20 12:55 Pulse Rate 76 07/03/20 12:55 Respiratory Rate 16 07/03/20 12:55 Blood Pressure 125/87 07/03/20 12:55 O2 Sat by Pulse Oximetry 99 07/03/20 12:55 Pain Scale Pain Intensity 7 - Physical Exam General Appearance: no apparent distress (Pt in pain) Eye Exam: PERRL/EOMI, eyes nml inspection Ears, Nose, Throat Exam: normal ENT inspection, TMs normal, pharynx normal, moist mucous membranes Neck Exam: normal inspection, non-tender, supple, full range of motion, No meningismus, No mass, No Brudzinski, No Kernig's, No carotid bruit Respiratory Exam: normal breath sounds, lungs clear, airway intact, No respiratory distress Cardiovascular Exam: regular rate/rhythm, normal heart sounds, normal peripheral pulses, No murmur Gastrointestinal/Abdomen Exam: soft, normal bowel sounds, tenderness (RUQ wo guarding/Rebound) Pelvic Exam: not done Back Exam: CVA tenderness (Mild R) Extremity Exam: normal inspection, normal range of motion Neurologic Exam: alert, oriented x 3, cooperative, nursing education consultant II-XII nml as tested, normal mood/affect, sensation nml, No motor deficits, No sensory deficit Skin Exam: normal color, warm, dry Lymphatic Exam: No adenopathy SpO2 Interpretation: normal SpO2: 99 O2 Delivery: Room Air - Course Nursing assessment & vital signs reviewed: Yes - CT Exams Abdomen/Pelvis CT Interpretation: Discussed w/radiologist (Nothing acute) Ordered Tests: Active Orders 24 hr Category Date Time Status IV Insertion STAT Care 07/03/20 13:19 Active ABDOMEN AND PELVIS W/0 CONTRAS [CT] Stat Exams 07/03/20 13:35 Completed AMYLASE Stat Lab 07/03/20 13:30 Completed CBC W DIFF Stat Lab 07/03/20 13:30 Completed CMP Stat Lab 07/03/20 13:30 Completed LIPASE Stat Lab 07/03/20 13:30 Completed UA W/RFX UR CULTURE Stat Lab 07/03/20 13:18 Completed Medication Summary Discontinued Medications Generic Name Dose Route Start Last Admin Trade Name Freq PRN Reason Stop Dose Admin Sodium Chloride 1,000 mls @ 999 mls/hr 07/03/20 13:19 07/03/20 13:21 Sodium Chloride 0.9% 1000 Ml IV 07/03/20 14:19 999 mls/hr .Q1H1M STA Administration Sodium Chloride Confirm 07/03/20 13:20 Sodium Chloride 0.9% 1000 Ml Administered 07/03/20 13:21 Dose 1,000 mls @ ud .ROUTE .STK-MED ONE Ketorolac Tromethamine 30 mg 07/03/20 13:09 07/03/20 13:21 Toradol 30 Mg Injection IV 07/03/20 13:10 30 mg STAT ONE Administration Ketorolac Tromethamine Confirm 07/03/20 13:20 Toradol 30 Mg Injection Administered 07/03/20 13:21 Dose 30 mg .ROUTE .STK-MED ONE Lab/Rad Data: Laboratory Result Diagrams 07/03/20 13:30 07/03/20 13:30 Laboratory Results 07/03/20 07/03/20 07/03/20 Range/Units 13:30 13:30 13:18 WBC 5.6 (4.0-10.5) K/mm3 RBC 4.77 (4.1-5.4) M/mm3 Hgb 13.2 (12.0-16.0) gm/dl Hct 41.3 (35-47) % MCV 86.6 (78-100) fl MCH 27.7 (26-32) pg MCHC 32.0 (32-36) g/dl RDW 13.3 (11.5-14.0) % Plt Count 246 (150-450) K/mm3 MPV 10.8 (7.5-11.0) fl Gran % 55.6 (36.0-66.0) % Eos # (Auto) 0.17 (0-0.5) Absolute Lymphs (auto) 1.70 (1.0-4.6) Absolute Monos (auto) 0.61 (0.0-1.3) Lymphocytes % 30.2 (24.0-44.0) % Monocytes % 10.8 (0.0-12.0) % Eosinophils % 3.0 (0.00-5.0) % Basophils % 0.4 (0.0-0.4) % Absolute Granulocytes 3.13 (1.4-6.9) Basophils # 0.02 (0-0.4) Sodium 138 (137-145) mmol/L Potassium 3.6 (3.5-5.1) mmol/L Chloride 107 (98-107) mmol/L Carbon Dioxide 26 (22-30) mmol/L Anion Gap 8.7 (5-15) MEQ/L BUN 9 (7-17) mg/dL Creatinine 0.55 (0.52-1.04) mg/dL Estimated GFR > 60.0 ML/MIN Glucose 138 H (74-106) mg/dL Calcium 9.4 (8.4-10.2) mg/dL Total Bilirubin 0.40 (0.2-1.3) mg/dL AST 29 (14-36) U/L ALT 31 (0-35) U/L Alkaline Phosphatase 68 (38-126) U/L Serum Total Protein 7.2 (6.3-8.2) g/dL Albumin 4.1 (3.5-5.0) g/dL Amylase 72 (30-110) U/L Lipase 127 (23-300) U/L Urine Color COLORLESS (YELLOW) Urine Appearance CLEAR (CLEAR) Urine pH 7.0 (5-6) Ur Specific [place] 1.002 (1.005-1.025) Urine Protein NEGATIVE (Negative) Urine Ketones NEGATIVE (NEGATIVE) Urine Blood NEGATIVE (0-5) Jack/ul Urine Nitrite NEGATIVE (NEGATIVE) Urine Bilirubin NEGATIVE (NEGATIVE) Urine Urobilinogen NEGATIVE (0-1) mg/dL Ur Leukocyte Esterase NEGATIVE (NEGATIVE) Urine WBC (Auto) NONE (0-5) /HPF Urine RBC (Auto) NONE SEEN (0-2) /HPF Urine Bacteria (Auto) NONE SEEN (NEGATIVE) /HPF Urine Mucus (Auto) SLIGHT (NEGATIVE) /HPF Urine Culture Reflexed NO (NO) Urine Glucose NEGATIVE (NEGATIVE) mg/dL - Progress Progress: improved Progress Note: 07/03/20 14:35 30mg IV Toradol w improvement Counseled pt/family regarding: lab results, diagnosis, need for follow-up, rad results - Departure Departure Disposition: Home Clinical Impression: Abdominal pain Condition: Stable Critical Care Time: No Referrals: MARKO ROLDAN DO [Primary Care Provider] - Instructions: Flank Pain Additional Instructions: Strain all urine Bentyl as needed for pain Return to ER for increasing pain or temperature greater than 100.5 Prescriptions: Dicyclomine HCl 20 mg [Bentyl 20 mg] 20 mg PO Q6H PRN PRN #12 tablet PRN Reason: Pain
[2020-07-03 13:57] LABS: Absolute Neutrophil Ct (ANC) 3.13 (1.4-6.9); BASOPHIL % 0.4 % (0.0-0.4); Basophil (Absolute #) 0.02 (0-0.4); Eosinophil (Absolute #) 0.17 (0-0.5); Hematocrit 41.3 % (35-47); Hemoglobin 13.2 gm/dl (12.0-16.0); Lymphocytes % 30.2 % (24.0-44.0); Mean Cell Volume 86.6 fl (78-100); Mean Corpuscular Hemoglobin 27.7 pg (26-32); Mean Platelet Volume 10.8 fl (7.5-11.0); Monocyte (Absolute #) 0.61 (0.0-1.3); Monocytes % 10.8 % (0.0-12.0); Neutrophil % 55.6 % (36.0-66.0); Platelet Count 246 K/mm3 (150-450); Red Blood Count 4.77 M/mm3 (4.1-5.4); Red Cell Distribution Width 13.3 % (11.5-14.0); White Blood Count 5.6 K/mm3 (4.0-10.5)
--- NOTE | 2020-07-03 14:12 | XRAY ---
Indication: Right flank pain. Multiple contiguous axial images obtained through the abdomen and pelvis without contrast using renal stone protocol. Comparison: July 15, 2018. Lung bases remain clear. Heart is not enlarged. Stable small hiatal hernia. Again no renal calculus or evidence for obstructive uropathy in either system. Noncontrasted stomach and bowel loops remain nonobstructed with normal appendix. Minimal sigmoid diverticulosis. There remains several hepatic/splenic calcified granulomas, cholecystectomy, and hysterectomy. No free fluid/air. Remaining liver, pancreas, spleen, adrenal glands, kidneys, ureters, bladder, and aorta appear unremarkable for noncontrast exam. Osseous structures intact. Impression: 1. Negative renal calculus or evidence for obstructive uropathy. 2. Incidental small hiatal hernia, sigmoid diverticulosis, and old granulomatous disease. 3. No acute intra-abdominal/pelvic abnormalities on this noncontrast exam.
[2020-07-03 14:18] LABS: ALBUMIN 4.1 g/dL (3.5-5.0); ALKALINE PHOSPHATASE 68 U/L (38-126); AMYLASE 72 U/L (30-110); ANION GAP 8.7 MEQ/L (5-15); BLOOD UREA NITROGEN 9 mg/dL (7-17); CHLORIDE 107 mmol/L (98-107); Calcium 9.4 mg/dL (8.4-10.2); Carbon Dioxide 26 mmol/L (22-30); Creatinine 1 0.55 mg/dL (0.52-1.04); EST GLOMERULAR FILTRATION RATE > 60.0 ML/MIN; Glucose 138 mg/dL (74-106); LIPASE 127 U/L (23-300); Potassium 3.6 mmol/L (3.5-5.1); SGOT/AST 29 U/L (14-36); SGPT/ALT 31 U/L (0-35); SODIUM 138 mmol/L (137-145); Total Protein 7.2 g/dL (6.3-8.2)
[2020-07-03 14:20] VITALS: BP 121/75; PULSE 70
[2020-07-03 14:38] VITALS: O2SAT 99
== END 2020-07-03 14:52 | disposition home or self-care (01) ==
LOC: ED 12:36
DX: R10.31 Right lower quadrant pain (principal); R10.11 Right upper quadrant pain; R11.2 Nausea with vomiting, unspecified; M54.9 Dorsalgia, unspecified; Z79.899 Other long term (current) drug therapy
CPT/HCPCS: 36000; 36415; 74176; 80053; 81001; 82150; 83690; 85025; 96374; 99284; J1885